=== PATIENT | female | born 1990 | race Caucasian/White ===

== ENCOUNTER 2020-04-01 16:50 | Emergency (ER) | payer MEDICAID ==
[~2020-04-01] VITALS: Ht 154.9 cm; Wt 46.4 kg
--- NOTE | 2020-04-01 17:13 | NUR ---
pt asleep,no reported discomfort.
--- NOTE | 2020-04-01 17:23 | NUR ---
Dr. Perez at bedside.
[2020-04-01 18:08] VITALS: BP 112/88
== END 2020-04-01 18:16 | disposition home or self-care (01) ==
LOC: ER 16:51
DX: F15.10 Other stimulant abuse, uncomplicated (principal); F11.90 Opioid use, unspecified, uncomplicated; F17.210 Nicotine dependence, cigarettes, uncomplicated
CPT/HCPCS: 99283

== ENCOUNTER 2021-07-13 14:41 | Emergency (ER) | payer MEDICAID ==
[~2021-07-13] VITALS: Ht 154.9 cm; Wt 49.5 kg
[2021-07-13 15:02] VITALS: BP 122/86
[2021-07-13] MEDS ORDERED: dexamethasone sod phosphate 10mg/ml inj PO STA (15:45)
[2021-07-13] MEDS ORDERED: ibuprofen tablet 400 MG TABLET PO ONE (15:45)
[2021-07-13] MEDS ORDERED: AMOX-101 PO (17:28)
== END 2021-07-13 17:56 | disposition home or self-care (01) ==
LOC: ER 14:41
DX: J02.9 Acute pharyngitis, unspecified (principal); Z20.822 Contact with and (suspected) exposure to COVID-19; R51.9 Headache, unspecified; F15.90 Other stimulant use, unspecified, uncomplicated; F11.90 Opioid use, unspecified, uncomplicated; Z72.89 Other problems related to lifestyle; Z79.2 Long term (current) use of antibiotics
CPT/HCPCS: 87635; 99283; C9803; J1100

== ENCOUNTER 2021-11-03 08:01 | Emergency (ER) | payer MEDICAID ==
[~2021-11-03] VITALS: Ht 154.9 cm; Wt 47.7 kg
[2021-11-03 08:15] VITALS: BP 151/98
[2021-11-03] MEDS ORDERED: azithromycin 250mg tablet PO ONE (09:45)
[2021-11-03] MEDS ORDERED: CefTRIAXone 250MG IM Kit w/LIDOcaine IM ONE (09:45)
[2021-11-03] MEDS ORDERED: METR-159 PO (09:46)
== END 2021-11-03 10:03 | disposition home or self-care (01) ==
LOC: ER 08:03
DX: A54.9 Gonococcal infection, unspecified (principal); N89.8 Other specified noninflammatory disorders of vagina; F15.10 Other stimulant abuse, uncomplicated; F11.10 Opioid abuse, uncomplicated
CPT/HCPCS: 96372; 99283; J0696

== ENCOUNTER 2021-11-26 16:20 | Emergency (ER) | payer MEDICAID ==
[~2021-11-26] VITALS: Ht 154.9 cm; Wt 47.7 kg
[2021-11-26 16:33] VITALS: BP 126/88
[2021-11-26 17:19] LABS: URINE HCG NEGATIVE (NEG)
[2021-11-26 17:20] LABS: CLARITY,URINE SLIGHTLY CLOUDY (Clear); COLOR,URINE YELLOW (Yellow); GLUCOSE, URINE NEGATIVE (Neg); KETONES,URINE TRACE mg/dl (Neg); LEUKOCYTE ESTERASE ,URINE TRACE (Neg); NITRITES, URINE NEGATIVE (Neg); OCCULT BLOOD,URINE TRACE-INTACT (Neg); PROTEIN,URINE NEGATIVE (Neg); UROBILINOGEN,URINE 0.2 E.U/dL (0.2-1.0)
[2021-11-26 17:23] LABS: UA COLLECTION TYPE NON-SPECIFIED
[2021-11-26 17:27] LABS: MUCUS STRANDS MODERATE /LPF (Neg); SQUAMOUS EPITHELIAL CELL,UR MANY /LPF (FEW)
[2021-11-26 17:29] LABS: CAL OXALATE CRYSTALS 3+ /HPF (NEGATIVE)
[2021-11-26 17:30] LABS: BACTERIA,URINE FEW /HPF (Neg); RBC,URINE 0-2 /HPF (0-2)
[2021-11-26] MEDS ORDERED: NITR100C6 PO (17:38)
== END 2021-11-26 18:36 | disposition left against medical advice (07) ==
LOC: ER 16:20
DX: J06.9 Acute upper respiratory infection, unspecified (principal); Z53.21 Procedure and treatment not carried out due to patient leaving prior to being seen by health care provider
CPT/HCPCS: 81001; 81025

== ENCOUNTER 2021-12-03 03:31 | Emergency (ER) | payer MEDICAID ==
[~2021-12-03] VITALS: Ht 154.9 cm; Wt 49.4 kg
[~2021-12-03 03:31] MED LIST: NITR100C6 PO
[2021-12-03 04:19] LABS: URINE HCG NEGATIVE (NEG)
[2021-12-03 04:22] LABS: BASOPHILS # (AUTO) 0.1 X10'3 (0-0.2); MEAN PLATELET VOLUME 7.5 FL (7.4-10.4); MONOCYTES # (AUTO) 0.5 X10'3 (0-0.9); NEUTROPHILS # (AUTO) 3.7 X10'3 (1.8-7.7); WHITE BLOOD COUNT 6.8 X10'3 (4.5-11.0)
[2021-12-03 04:23] LABS: EOSINOPHILS # (AUTO) 0.1 X10'3 (0-0.9); EOSINOPHILS % (AUTO) 2.2 % (0-6); HEMATOCRIT 40.3 % (35.0-45.0); HEMOGLOBIN 13.5 g/dl (12.0-16.0); LYMPHOCYTES # (AUTO) 2.3 X10'3 (1.1-4.8); LYMPHOCYTES % (AUTO) 34.5 % (21-51); MEAN CORPUSCULAR HEMOGLOBIN 27.6 PG (27.0-31.0); MEAN CORPUSCULAR HGB CONC 33.3 g/dL (33.0-36.5); MEAN CORPUSCULAR VOLUME 82.8 FL (78-98); MONOCYTES % (AUTO) 7.7 % (2-12); NEUTROPHILS % (AUTO) 54.6 % (42-75); PLATELET COUNT 360 X10'3 (140-440); RED BLOOD COUNT 4.87 X10'6 (4.20-5.60); RED CELL DISTRIBUTION WIDTH 15.5 % (11.5-14.5)
[2021-12-03 04:30] LABS: ALANINE AMINOTRANSFERASE 25 U/L (12-78); ALBUMIN/GLOBULIN RATIO 1.2 (1.1-1.5); ALKALINE PHOSPHATASE 76 IU/L (46-116); ANION GAP 5 (8-16); ASPARTATE AMINO TRANSFERASE 24 U/L (10-37); BILIRUBIN,TOTAL 0.1 MG/DL (0.1-1.0); BLOOD UREA NITROGEN 9 MG/DL (7-18); BUN/CREATININE RATIO 13.2 (6.6-38.0); CALCIUM 9.3 MG/DL (8.5-10.1); CHLORIDE 102 MMOL/L (99-107); CREATININE 0.68 MG/DL (0.40-0.90); GLUCOSE 95 MG/DL (70-104); LIPASE 53 U/L (73-393); POTASSIUM 4.3 MMOL/L (3.5-5.1); SODIUM 136 MMOL/L (135-145); TOTAL CARBON DIOXIDE 29.3 MMOL/L (24-32); TOTAL PROTEIN 7.4 G/DL (6.4-8.2); eGFR > 90 ML/MIN
[2021-12-03 04:37] VITALS: BP 136/93
[2021-12-03 04:40] LABS: CLARITY,URINE CLOUDY (Clear); COLOR,URINE YELLOW (Yellow); GLUCOSE, URINE NEGATIVE (Neg); KETONES,URINE NEGATIVE (Neg); LEUKOCYTE ESTERASE ,URINE SMALL (Neg); NITRITES, URINE NEGATIVE (Neg); OCCULT BLOOD,URINE NEGATIVE (Neg); PH,URINE 7.5 (4.8-8.0); PROTEIN,URINE NEGATIVE (Neg); UROBILINOGEN,URINE 0.2 E.U/dL (0.2-1.0)
[2021-12-03 04:57] LABS: UA COLLECTION TYPE CLN CATCH MIDSTREAM
[2021-12-03 05:00] LABS: RBC,URINE 0-2 /HPF (0-2)
[2021-12-03 05:01] LABS: AMORPHOUS PHOSPHATES 3+; BACTERIA,URINE 1+ /HPF (Neg); MUCUS STRANDS FEW /LPF (Neg); SQUAMOUS EPITHELIAL CELL,UR FEW /LPF (FEW)
[2021-12-03] MEDS ORDERED: cephalexin 250mg capsule PO ONE (05:50)
[2021-12-03] MEDS ORDERED: CEPH250T PO (05:52)
== END 2021-12-03 06:02 | disposition home or self-care (01) ==
LOC: ER 03:32
DX: N12 Tubulo-interstitial nephritis, not specified as acute or chronic (principal); F15.90 Other stimulant use, unspecified, uncomplicated; F11.90 Opioid use, unspecified, uncomplicated; Z72.89 Other problems related to lifestyle; Z79.2 Long term (current) use of antibiotics; Z79.899 Other long term (current) drug therapy; Z87.440 Personal history of urinary (tract) infections
CPT/HCPCS: 36415; 80053; 81001; 81025; 83690; 85025; 87088; 99283

== ENCOUNTER 2022-01-30 13:20 | Emergency (ER) | payer MEDICAID ==
[~2022-01-30] VITALS: Ht 154.9 cm; Wt 49.1 kg
[2022-01-30 13:23] VITALS: BP 111/71
[2022-01-30 14:33] LABS: URINE HCG NEGATIVE (NEG)
[2022-01-30 14:36] LABS: CLARITY,URINE TURBID (Clear); COLOR,URINE YELLOW (Yellow); GLUCOSE, URINE NEGATIVE (Neg); KETONES,URINE NEGATIVE (Neg); LEUKOCYTE ESTERASE ,URINE LARGE (Neg); NITRITES, URINE POSITIVE (Neg); OCCULT BLOOD,URINE MODERATE (Neg); PROTEIN,URINE 30 mg/dl (Neg); UROBILINOGEN,URINE 0.2 E.U/dL (0.2-1.0)
[2022-01-30 14:38] LABS: UA COLLECTION TYPE CLN CATCH MIDSTREAM
[2022-01-30 14:59] LABS: AMORPHOUS URATES 3+; BACTERIA,URINE 1+ /HPF (Neg); RBC,URINE 0-2 /HPF (0-2); SQUAMOUS EPITHELIAL CELL,UR MANY /LPF (FEW); TRICHOMONAS,URINE MOD /HPF (NEGATIVE); WBC CLUMPS,URINE FEW /HPF (NEGATIVE); WBC,URINE 50-100 /HPF (0-4)
[2022-01-30] MEDS ORDERED: CefTRIAXone 500MG IM Kit w/LIDOcaine IM ONE (15:05)
[2022-01-30] MEDS ORDERED: CefTRIAXone 1000mg IM Kit (w/lidocaine diluent) IM ONE (15:05)
[2022-01-30] MEDS ORDERED: DOXYCYCLINE 100MG CAPSULE PO ONE (15:05)
== END 2022-01-30 16:19 | disposition left against medical advice (07) ==
LOC: ER 13:21
DX: N89.8 Other specified noninflammatory disorders of vagina (principal); F17.200 Nicotine dependence, unspecified, uncomplicated; F15.10 Other stimulant abuse, uncomplicated; F14.10 Cocaine abuse, uncomplicated; Z79.899 Other long term (current) drug therapy
CPT/HCPCS: 36415; 81001; 81025; 87491; 87591; 96372; 99283; J0696

== ENCOUNTER 2022-03-11 22:06 | Emergency (ER) | payer MEDICAID ==
[~2022-03-11] VITALS: Ht 154.9 cm; Wt 50.0 kg
[2022-03-11 22:58] VITALS: BP 138/94
[2022-03-11] MEDS ORDERED: hydrOXYzine 25 MG tablet PO ONE (23:05)
[2022-03-11 23:19] LABS: CLARITY,URINE CLOUDY (Clear); COLOR,URINE YELLOW (Yellow); GLUCOSE, URINE NEGATIVE (Neg); KETONES,URINE NEGATIVE (Neg); LEUKOCYTE ESTERASE ,URINE SMALL (Neg); NITRITES, URINE POSITIVE (Neg); OCCULT BLOOD,URINE NEGATIVE (Neg); PROTEIN,URINE NEGATIVE (Neg); UROBILINOGEN,URINE 0.2 E.U/dL (0.2-1.0)
[2022-03-11 23:23] LABS: UA COLLECTION TYPE CLN CATCH MIDSTREAM
[2022-03-11 23:32] LABS: WBC,URINE 30-50 /HPF (0-4)
[2022-03-11 23:33] LABS: BACTERIA,URINE 4+ /HPF (Neg); MUCUS STRANDS FEW /LPF (Neg); SQUAMOUS EPITHELIAL CELL,UR FEW /LPF (FEW); TRANSITIONAL EPI CELLS,URINE FEW /HPF; TRICHOMONAS,URINE FEW /HPF (NEGATIVE); WBC CLUMPS,URINE FEW /HPF (NEGATIVE)
[2022-03-11 23:39] LABS: CAL OXALATE CRYSTALS 2+ /HPF (NEGATIVE)
[2022-03-11] MEDS ORDERED: metroNIDAZOLE 500mg tablet PO ONE (23:40)
[2022-03-11] MEDS ORDERED: azithromycin 250mg tablet PO ONE (23:40)
[2022-03-11] MEDS ORDERED: CefTRIAXone 500MG IM Kit w/LIDOcaine IM ONE (23:40)
[2022-03-11] MEDS ORDERED: CefTRIAXone 1000mg IM Kit (w/lidocaine diluent) IM ONE (23:45)
[2022-03-12 00:05] LABS: BASOPHILS # (AUTO) 0.1 X10'3 (0-0.2); BASOPHILS % (AUTO) 1.5 % (0-1); EOSINOPHILS # (AUTO) 0.2 X10'3 (0-0.9); EOSINOPHILS % (AUTO) 2.8 % (0-6); HEMATOCRIT 39.9 % (35.0-45.0); HEMOGLOBIN 13.1 g/dl (12.0-16.0); LYMPHOCYTES # (AUTO) 2.9 X10'3 (1.1-4.8); LYMPHOCYTES % (AUTO) 34.6 % (21-51); MEAN CORPUSCULAR HEMOGLOBIN 27.3 PG (27.0-31.0); MEAN CORPUSCULAR HGB CONC 32.9 g/dL (33.0-36.5); MEAN PLATELET VOLUME 7.1 FL (7.4-10.4); MONOCYTES # (AUTO) 0.6 X10'3 (0-0.9); MONOCYTES % (AUTO) 7.7 % (2-12); NEUTROPHILS # (AUTO) 4.4 X10'3 (1.8-7.7); NEUTROPHILS % (AUTO) 53.4 % (42-75); PLATELET COUNT 456 X10'3 (140-440); RED BLOOD COUNT 4.81 X10'6 (4.20-5.60); RED CELL DISTRIBUTION WIDTH 15.7 % (11.5-14.5); WHITE BLOOD COUNT 8.2 X10'3 (4.5-11.0)
[2022-03-12 00:35] LABS: ALANINE AMINOTRANSFERASE 27 U/L (12-78); ALBUMIN/GLOBULIN RATIO 1.1 (1.1-1.5); ALKALINE PHOSPHATASE 82 IU/L (46-116); ANION GAP 9 (8-16); ASPARTATE AMINO TRANSFERASE 21 U/L (10-37); BILIRUBIN,TOTAL 0.1 MG/DL (0.1-1.0); BLOOD UREA NITROGEN 11 MG/DL (7-18); BUN/CREATININE RATIO 12.4 (6.6-38.0); CALCIUM 9.1 MG/DL (8.5-10.1); CHLORIDE 100 MMOL/L (99-107); CREATININE 0.89 MG/DL (0.40-0.90); GLUCOSE 95 MG/DL (70-104); POTASSIUM 3.8 MMOL/L (3.5-5.1); SODIUM 139 MMOL/L (135-145); TOTAL CARBON DIOXIDE 30.1 MMOL/L (24-32); TOTAL PROTEIN 7.5 G/DL (6.4-8.2); eGFR 73 ML/MIN
[2022-03-12 00:40] LABS: URINE HCG NEGATIVE (NEG)
[2022-03-12 01:02] LABS: HIV ANTIBODY 1&2 RAPID NON-REACTIVE (Neg)
[2022-03-12] MEDS ORDERED: DOXY-1 PO (01:06)
[2022-03-12] MEDS ORDERED: HYDR-3686 PO (01:06)
[2022-03-13 07:34] LABS: HBSAG SCREEN Negative (Negative)
== END 2022-03-12 01:09 | disposition home or self-care (01) ==
LOC: ER 22:07
DX: N89.8 Other specified noninflammatory disorders of vagina (principal); R35.0 Frequency of micturition; R30.9 Painful micturition, unspecified; F11.10 Opioid abuse, uncomplicated; Z79.899 Other long term (current) drug therapy
CPT/HCPCS: 36415; 80053; 81001; 81025; 85025; 86592; 86703; 87070; 87075; 87076; 87077; 87088; 87102; 87185; 87186; 87210; 87340; 96372; 99284; J0696; Q0112; Q0177; 84702; 87491; 87591

== ENCOUNTER 2022-11-19 23:44 | Emergency (ER) | payer MEDICAID ==
[~2022-11-19] VITALS: Ht 152.4 cm; Wt 50.8 kg
[~2022-11-19 23:44] MED LIST changes: +HYDR-3686 PO
[2022-11-20 00:56] VITALS: BP 134/98
[2022-11-20 01:00] LABS: CLARITY,URINE SLIGHTLY CLOUDY (Clear); COLOR,URINE YELLOW (Yellow); GLUCOSE, URINE NEGATIVE (Neg); KETONES,URINE NEGATIVE (Neg); LEUKOCYTE ESTERASE ,URINE TRACE (Neg); NITRITES, URINE POSITIVE (Neg); OCCULT BLOOD,URINE LARGE (Neg); PROTEIN,URINE TRACE mg/dl (Neg); URINE HCG NEGATIVE (NEG); UROBILINOGEN,URINE 0.2 E.U/dL (0.2-1.0)
[2022-11-20 01:05] LABS: UA COLLECTION TYPE VOIDED
[2022-11-20 01:12] LABS: BACTERIA,URINE 3+ /HPF (Neg); MUCUS STRANDS FEW /LPF (Neg); RBC,URINE 20-50 /HPF (0-2); RENAL CELLS, URINE FEW /HPF; SQUAMOUS EPITHELIAL CELL,UR FEW /LPF (FEW); WBC,URINE 50-100 /HPF (0-4)
[2022-11-20 01:13] LABS: TRICHOMONAS,URINE FEW /HPF (NEGATIVE); YEAST FEW /HPF (NEGATIVE)
[2022-11-20] MEDS ORDERED: CEPH-585 PO (03:31)
== END 2022-11-20 03:41 | disposition home or self-care (01) ==
LOC: ER 23:45
DX: N39.0 Urinary tract infection, site not specified (principal); F15.10 Other stimulant abuse, uncomplicated; Z79.899 Other long term (current) drug therapy
CPT/HCPCS: 81001; 81025; 87088; 99283